=== PATIENT | female | born 1980 | race Caucasian/White ===

== ENCOUNTER → 2020-05-27 10:00 | Outpatient (CLI) | payer OTHER, SELFPAY ==
--- NOTE | ~2020-05-27 | XR_ITS ---
[id number] 05/27/2020 10:36 Indication: Cervicalgia Procedure: 4 views of the cervical spine Comparison: No prior studies for comparison. Findings: Straightening of cervical lordosis. Vertebral body and disc heights are preserved. No preve rtebral soft tissue swelling. Lung apices are normal. No fracture or traumatic malalignment. Odontoid process within normal limits. Lateral masses normally aligned. Impression: 1: Straightening of cervical lordosis, likely due to muscle spasm and/or patient positioning. Reviewed, dictated and finalized at location A. MOMETER MAKER Impression: 1: Straightening of cervical lordosis, likely due to muscle spasm and/or patien t positioning.
== END ==
PROVIDERS: PCP Family Medicine; Visit Provider Physician Assistant
DX: M54.2 Cervicalgia (principal); M53.82 Other specified dorsopathies, cervical region
CPT/HCPCS: 72040

== ENCOUNTER → 2020-06-02 15:14 | Outpatient (CLI) | payer OTHER, SELFPAY ==
--- NOTE | ~2020-06-02 | US_ITS ---
EXAMINATION: US thyroid DATE: 06/02/2020 15:27 INDICATION: Iodine deficiency related diffuse endemic goiter. TECHNIQUE: Multiple ultrasound images of the thyroid were obtained. COMPARISON: None. FINDINGS: The right thyroid lobe measures 5.7 x 1.3 x 1.6 cm. The left thyroid lobe measures 4.6 x 1.2 x 1.4 c m. There is normal echotexture and echogenicity throughout the thyroid gland. No discrete nodules id entified. Normal vascular flow is present. IMPRESSION: 1. Normal thyroid. Reviewed, dictated and finalized at location A. ER ANALYST IMPRESSION: 1. Normal thyroid.
== END ==
PROVIDERS: PCP Family Medicine; Visit Provider Physician Assistant
DX: E01.0 Iodine-deficiency related diffuse (endemic) goiter (principal)
CPT/HCPCS: 76536

== ENCOUNTER 2020-12-03 11:18 | Outpatient (CLI) | payer OTHER, SELFPAY ==
--- NOTE | 2020-12-03 11:24 | ECG_ITS ---
Measurements Intervals [place] Rate: 99 P: 67 AK: 120 QRS: 43 QRSD: 81 T: 3 QT: 329 QTc: 424 Interpretive Statements SINUS RHYTHM POSSIBLE LEFT ATRIAL ENLARGEMENT BORDERLINE ST ABNORMALITY- ANTEROLAT/INF LEADS BASELINE ARTIFACT- II, III, AVF BORDERLINE ECG Electronically Signed On 12-03-2020 15:58:21 CDT by Joaquin Victoria D.O.
== END 2020-12-03 11:19 | disposition home or self-care (01) ==
LOC: ANHCARD 11:21
PROVIDERS: PCP Family Medicine; Visit Provider Physician Assistant
DX: R00.2 Palpitations (principal)
CPT/HCPCS: 93005